=== PATIENT | male | born 2000 | race Hispanic/Latino ===

== ENCOUNTER 2023-04-20 22:03 | Emergency (ER) | payer SELFPAY ==
[2023-04-20] MEDS ORDERED: Lidocaine Viscous Sol 2% 15 ml UD Cup ONE (22:27)
[2023-04-20] MEDS ORDERED: Mag-Al Plus 1200 MG/1200 MG/120 MG/30 ML UDCUP ONE (22:27)
== END 2023-04-21 00:10 | disposition home or self-care (01) ==
LOC: NAV ERS 22:03
DX: R10.13 Epigastric pain (principal)
CPT/HCPCS: 99283